=== PATIENT | female | born 1985 | race Caucasian/White ===

== ENCOUNTER 2020-10-12 15:15 | Emergency (ER) | payer BC, MEDICAID, SELFPAY ==
[2020-10-12 15:19] VITALS: BP 146/82; PULSE 83; RESP 18; TEMP 36.4; O2SAT 100
[2020-10-12 15:24] VITALS: BP 146/82; PULSE 81; RESP 16; O2SAT 99
--- NOTE | 2020-10-12 15:26 | ED.HA ---
HPI - Headache General Chief Complaint: Headache Stated Complaint: headache Time Seen by Provider: 10/12/20 15:20 Source: patient Mode of arrival: ambulatory Limitations: no limitations History of Present Illness HPI Narrative: A 35-year-old female presents to emergency department today with complaints of a headache. Patient does state that she has a migraine headache, noting that she does have a history of migraines. Patient states she usually takes Aleve at home and gets good relief with this. She notes that today her headache was so severe that she has been nauseated when she took the Aleve she vomited all up. Patient denies any numbness or tingling anywhere. She states that she does not take any routine or prescription migraine medications. Related Data Home Medications Medication Instructions Recorded Confirmed clonazepam 1 mg PO DAILY 10/12/20 lisdexamfetamine [Vyvanse] 40 mg PO DAILY 10/12/20 Allergies Allergy/AdvReac Type Severity Reaction Status Date / Time doxycycline Allergy Rash Verified 10/12/20 15:25 Review of Systems Review of Systems: Narrative: CONSTITUTIONAL: Denies fever, chills, or sweats. EYES: Denies visual changes, redness, or discharge. ENT: Denies rhinorrhea, congestion, sore throat, or otalgia. CARDIOVASCULAR: Denies chest pain, palpitations, or edema. RESPIRATORY: Denies cough or dyspnea. GASTROINTESTINAL: Denies abdominal pain, nausea, vomiting, or diarrhea. GENITOURINARY: Denies dysuria or hematuria. SKIN: Denies rash or itching. MUSCULOSKELETAL: Denies back pain, joint pain, or myalgia. NEUROLOGIC: Denies numbness, dizziness, or weakness. Endorses headache PSYCHIATRIC: Denies anxiety or depression. [facility] Past Medical History Medical History Migraine headache Exam Narrative: Exam Narrative: GENERAL: Well-appearing, well-nourished, and in no acute distress. Obese. HEAD: Normocephalic, atraumatic. EYES: PERRLA and EOMI. ENT: Nares clear, no rhinorrhea or epistaxis. Mucous membranes moist. Oropharynx without tonsillar hypertrophy exudate or other lesions. Bilateral TMs pearly jimenez nonbulging NECK: Supple. No adenopathy or masses. No carotid bruits or JVD CHEST: Clear to auscultation. No respiratory distress. No wheezes rales or rhonchi HEART: Regular rate and rhythm. No murmur heard. Normal peripheral pulses. ABDOMEN: Soft, nontender, nondistended, normal active bowel sounds. EXTREMITIES: Normal range of motion. No edema. SKIN: Warm, dry, no rash. NEURO: No focal deficits. Alert and oriented x3. PSYCH: Normal mood and affect. Course Reevaluation(s) Reevaluation #1: Reevaluated and provided care update for the patient. She has been resting comfortably in a dark room. Patient notes that when she came in her headache was an 8 out of 10, she notes it is now down to a 3 out of 10. Patient states that she is just now feeling sleepy as a side effect from the Benadryl and Compazine. Offered to continue to observe the patient or let her go home and rest. Patient states she is feeling well enough to go ahead and go home at this time. Time: 16:32 Vital Signs Vital signs: Vital Signs Temperature 36.4 C L 10/12/20 15:19 Pulse Rate 83 10/12/20 15:19 Respiratory Rate 18 10/12/20 15:19 Blood Pressure 146/82 H 10/12/20 15:19 Pulse Oximetry 100 10/12/20 15:19 Temperature 36.4 C L 10/12/20 15:19 Pulse Rate 81 10/12/20 15:24 Respiratory Rate 16 10/12/20 15:24 Blood Pressure 146/82 H 10/12/20 15:24 Pulse Oximetry 99 10/12/20 15:24 MDM - Headache MDM Narrative Medical decision making narrative: In brief this is a 35-year-old female who came into the emergency department with complaints of an exacerbation of a migraine headache. Patient states that she took her medications at home but due to nausea she vomited them up. Patient was given migraine cocktail, Toradol, Compazine and Benadryl. Patient did
[2020-10-12] MEDS: diphenhydrAMINE HCl INJ 50 MG/ML VIAL 25 MG IV PUSH (15:42)
[2020-10-12] MEDS: PROCHLORPERAZINE EDISYLATE 10 MG/2 ML VIAL 5 MG IV PUSH (15:43)
[2020-10-12] MEDS: SODIUM CHLORIDE 0.9% IV 100 ML 200 ML (15:43)
[2020-10-12] MEDS: KETOROLAC 15 MG/ML VIAL (*BKC) IV PUSH (15:43)
== END 2020-10-12 17:08 | disposition home or self-care (01) ==
PROVIDERS: Emergency Provider Emergency Medicine; PCP Family Medicine
DX: G43.109 Migraine with aura, not intractable, without status migrainosus (principal)
CPT/HCPCS: 96361; 96374; 96375; 99284; J0780; J1200; J1885

== ENCOUNTER → 2021-06-05 15:47 | Outpatient (CLI) | payer BC, SELFPAY ==
--- NOTE | ~2021-06-05 | US_ITS ---
EXAMINATION: US pelvic complete DATE: 06/05/2021 16:06 INDICATION: Displacement of the IUD. Comparison:No prior studies for comparison. TECHNIQUE: Multiple transabdominal sonographic images of the pelvis performed. FINDINGS: The uterus measures 9.3 x 3.6 x 5.3 cm. There is an IUD in the endometrium. The endometrial complex measures 4 mm. The right ovary measures 3.7 x 2.9 x 3.1 cm and the left ovary measures 2.9 x 2.9 x 2.1 cm. There is a 2.5 cm left ovarian cyst. Normal doppler signal in both ovaries. There is no free fluid in the pelvis. There are no abnormal masses seen on either side. IMPRESSION: 1. IUD in expected position in the endometrium. 2: Left ovarian cyst measuring 2.5 cm. Reviewed, dictated and finalized at location A.
== END ==
PROVIDERS: Visit Provider Nurse Practitioner
DX: T83.32XA Displacement of intrauterine contraceptive device, initial encounter (principal); N83.202 Unspecified ovarian cyst, left side
CPT/HCPCS: 76856